=== PATIENT | male | born 1980 | race African-American/Black ===

== ENCOUNTER 2021-11-17 01:33 | Emergency (ER) | payer OTHER ==
[2021-11-17 01:53] LABS: BASOPHIL 0.4 % (0-2); EOSINOPHIL 1.7 % (0-5); HCT 46.9 % (42.0-52.0); HGB 14.1 g/dl (13.2-18.0); LYMPHOCYTE 38.9 % (15-48); MCHC 30.1 g/dL (32.0-36.0); MCV 93.1 fL (78.0-100.0); MONOCYTE 11.3 % (0-12); MPV 11.8 fL (6.0-9.5); NEUTROPHIL 47.3 % (41-80); NRBC 0; PLT 276 K/uL (150-400); RBC 5.04 M/uL (4.70-6.00); RDW 11.9 % (11.5-14.0)
[2021-11-17 02:11] LABS: ALBUMIN 4.5 g/dL (3.4-5.0); BILIRUBIN - TOTAL 0.7 mg/dL (0.2-1.0); BUN/CREAT RATIO (CALC) 9.8 RATIO; CREATININE 1.53 mg/dL (0.67-1.17); GLOBULIN (CALCULATION) 3.5 g/dL; POTASSIUM 2.8 mmol/L (3.5-5.1)
== END 2021-11-17 03:08 | disposition other institution (70) ==
LOC: FER 01:33
PROVIDERS: Internal Medicine
DX: S82.452A Displaced comminuted fracture of shaft of left fibula, initial encounter for closed fracture (principal); S01.511A Laceration without foreign body of lip, initial encounter; S00.81XA Abrasion of other part of head, initial encounter; Z88.6 Allergy status to analgesic agent; Z23 Encounter for immunization; X95.9XXA Assault by unspecified firearm discharge, initial encounter; Y92.410 Unspecified street and highway as the place of occurrence of the external cause; Z28.310 Unvaccinated for COVID-19
CPT/HCPCS: 36415; 73590; 80053; 85025; 90471; 90715; 96374; 96375; J1170; J2001; J2405; J7030

== ENCOUNTER 2021-11-17 10:29 | Emergency (ER) | payer OTHER | END 2021-11-17 11:10 | disposition CLEPR | LOC: FER 10:29 | DX: S81.832D Puncture wound without foreign body, left lower leg, subsequent encounter (principal); Z88.6 Allergy status to analgesic agent | CPT/HCPCS: 99283 ==